=== PATIENT | male | born 2005 | race Caucasian/White ===

== ENCOUNTER 2025-03-24 23:32 | Emergency (ER) | payer OTHER ==
[~2025-03-24] VITALS: Ht 170.2 cm; Wt 72.7 kg
[2025-03-25] VITALS: TEMP 98.405312
[2025-03-25 00:10] LABS: PLATELET COUNT (AUTO) 226 K/uL (150-450); RED BLOOD CELL COUNT(AUTO) 5.06 MIL/uL (4.50-5.90); RED CELL DISTRIBUTION WIDTH 12.8 % (11.5-14.5); WHITE BLOOD COUNT (AUTO) 8.1 K/uL (4.5-11.0)
[2025-03-25 00:42] LABS: CALCIUM, TOTAL 9.1 mg/dL (8.8-10.5); CREATININE 0.96 mg/dL (0.60-1.30); GLOMERULAR FILTR. RATE CALC > 60 mL/min (>60); GLUCOSE,RANDOM 139 mg/dL (70-110); SODIUM SERUM 137 mmol/L (136-145); UREA NITROGEN, BLOOD 6 mg/dL (7-18)
[2025-03-25 00:45] VITALS: BP 116/72; PULSE 98; RESP 22; O2SAT 97
[2025-03-25 00:49] LABS: COVID AG,FIA SOURCE NASAL SWAB
[2025-03-25 01:05] LABS: SARS-COV2 (COVID) ANTIGEN,FIA Negative (Negative)
[2025-03-25 01:07] LABS: INFLUENZA TYPE A NEGATIVE FOR TYPE A (NEGATIVE); INFLUENZA TYPE B NEGATIVE FOR TYPE B (NEGATIVE)
== END 2025-03-25 01:25 | disposition home or self-care (01) ==
LOC: EMS 23:35
DX: J06.9 Acute upper respiratory infection, unspecified (principal); B97.89 Other viral agents as the cause of diseases classified elsewhere; J45.909 Unspecified asthma, uncomplicated; R53.1 Weakness; R05.9 Cough, unspecified; R50.9 Fever, unspecified; Z20.822 Contact with and (suspected) exposure to COVID-19
CPT/HCPCS: 99284; 87426; 80048; 85025; 87804; 36415; 71045; J8540